=== PATIENT | female | born 1975 | race Caucasian/White ===

== ENCOUNTER → 2016-04-18 | Outpatient (CLI) | payer OTHER ==
[~2016-04-18] MED LIST: ATARAX,VISTARIL10 MG PO; ATARAX25 MG PO; ATIVAN0.5 MG PO; ATIVAN1 MG PO; AUGMENTIN 875 M1 TAB PO; BACTRIM DS 8001 TA1 PO; BUSPAR10 MG PO; CELEXA10 MG PO; CELEXA20 MG PO; CIPRO250 MG PO; CLARITIN10 MG PO; COMBIVENT1 ARO IH; CYCLOBENZAPRINE10 MG PO; DARVOCET N 1001 TAB PO; DAYPRO600 M1 PO; DEXILANT60 M1 PO; FLEXERIL10 MG PO; FLEXERIL5 MG PO; GABAPENTIN TAB600 MG PO; HYDROCODONE BIT1 T11 PO; LORAZEPAM1 MG PO; MEDROL DOSEPAK4 MG PO; MOTRIN800 MG PO; NORCO 5-325 TA1 EACH PO; PEN-VEE K500 MG PO; PERCOCET 325 MG1 TA2 PO; PREDNICOT20 MG PO; PREDNISONE20 MG PO; PRILOSEC40 MG PO; PYRIDIUM200 M1 PO; ROBAXIN750 MG PO; ROBITUSSIN DM120 ML PO; SERTRALINE HYD100 MG PO; SKELAXIN800 MG PO; TESSALON PERLE200 MG PO; TRAMADOL HCL50 MG PO; TRAZODONE50 MG PO; VICODIN 5/500 505 MG PO; VICODIN ES 7501 TAB PO; XANAX0.25 MG PO; ZANTAC150 MG PO; ZITHROMAX Z PA250 MG PO; ZOFRAN ODT8 MG PO
== END | disposition home or self-care (01) ==
LOC: RESCLI 02:58
DX: J40 Bronchitis, not specified as acute or chronic (principal); J06.9 Acute upper respiratory infection, unspecified

== ENCOUNTER 2016-07-27 11:50 | Emergency (ER) | payer OTHER ==
[~2016-07-27] VITALS: Ht 172.7 cm; Wt 113.4 kg
[2016-07-27 12:00] VITALS: BP 152/102
[2016-07-27] MEDS ORDERED: VICODIN 5-3001 EACH PO (12:18)
[2016-07-27 12:20] LABS: BILIRUBIN NEGATIVE (NEGATIVE); BLOOD 1+ (NEGATIVE); CLARITY SL CLOUDY (CLEAR); COLOR YELLOW (YELLOW); GLUCOSE NEGATIVE (NEGATIVE); KETONE NEGATIVE (NEGATIVE); LEUKO ESTERASE TRACE (NEGATIVE); NITRITE NEGATIVE (NEGATIVE); PROTEIN TRACE (NEGATIVE); SPECIFIC GRAVITY >= 1.030 (1.005-1.030); UROBILINOGEN 0.2 E.U./dl (0.2-1.0)
[2016-07-27 12:33] LABS: URINE REFLEX COMMENT YES (NO)
[2016-07-27 12:34] LABS: BACTERIA TRACE; EPITHELIAL CELLS 16-20; HYALINE CAST 0-2
[2016-07-27] MEDS ORDERED: AMOXICILLIN500 M2 PO (12:37)
[2016-07-27] MEDS ORDERED: ZYRTEC10 MG PO (12:37)
== END 2016-07-27 13:01 | disposition home or self-care (01) ==
LOC: ED 11:50
PROVIDERS: Nurse Practitioner Family
DX: N91.2 Amenorrhea, unspecified (principal); J01.90 Acute sinusitis, unspecified; Z90.49 Acquired absence of other specified parts of digestive tract

== ENCOUNTER 2016-09-17 17:19 | Emergency (ER) | payer OTHER ==
[~2016-09-17] VITALS: Ht 170.1 cm; Wt 105.7 kg
[~2016-09-17 17:19] MED LIST changes: +AMOXICILLIN500 M2 PO; +VICODIN 5-3001 EACH PO; +ZYRTEC10 MG PO
[2016-09-17 17:23] VITALS: BP 158/90
[2016-09-17] MEDS ORDERED: HYDROXYZINE PAM50 MG PO (17:27)
[2016-09-17] MEDS ORDERED: DOXEPIN HCL25 MG PO (17:27)
[2016-09-17] MEDS ORDERED: LAMOTRIGINE100 MG PO (17:28)
[2016-09-17] MEDS ORDERED: ZYRTEC10 MG PO (18:53)
[2016-09-17] MEDS ORDERED: DELTASONE20 M1 PO (18:53)
== END 2016-09-17 18:58 | disposition home or self-care (01) ==
LOC: ED 17:19
DX: R06.2 Wheezing (principal); R06.02 Shortness of breath; F17.200 Nicotine dependence, unspecified, uncomplicated; Z79.899 Other long term (current) drug therapy

== ENCOUNTER → 2016-09-20 | Outpatient (CLI) | payer OTHER ==
[~2016-09-20] MED LIST changes: +DELTASONE20 M1 PO; +DOXEPIN HCL25 MG PO; +HYDROXYZINE PAM50 MG PO; +LAMOTRIGINE100 MG PO
== END | disposition home or self-care (01) ==
LOC: MRI 01:44
DX: M51.26 Other intervertebral disc displacement, lumbar region (principal); M47.896 Other spondylosis, lumbar region; M48.54XA Collapsed vertebra, not elsewhere classified, thoracic region, initial encounter for fracture; M40.295 Other kyphosis, thoracolumbar region; Z91.81 History of falling

== ENCOUNTER 2016-10-20 10:42 | Emergency (ER) | payer OTHER ==
[~2016-10-20] VITALS: Ht 170.1 cm; Wt 106.6 kg
[2016-10-20 11:05] VITALS: BP 147/96
== END 2016-10-20 12:17 | disposition left against medical advice (07) ==
LOC: ED 10:42
DX: R07.81 Pleurodynia (principal); F17.200 Nicotine dependence, unspecified, uncomplicated; Z90.49 Acquired absence of other specified parts of digestive tract; Z98.51 Tubal ligation status

== ENCOUNTER → 2016-10-23 | Outpatient (CLI) | payer OTHER | END | disposition home or self-care (01) | LOC: RESCLI 08:56 | DX: M79.2 Neuralgia and neuritis, unspecified (principal); M54.9 Dorsalgia, unspecified; R07.81 Pleurodynia; F17.210 Nicotine dependence, cigarettes, uncomplicated; Z91.09 Other allergy status, other than to drugs and biological substances; Z90.49 Acquired absence of other specified parts of digestive tract ==

== ENCOUNTER → 2016-10-30 | Outpatient (CLI) | payer OTHER | END | disposition home or self-care (01) | LOC: RESCLI 03:31 | DX: R07.81 Pleurodynia (principal); K21.9 Gastro-esophageal reflux disease without esophagitis; E66.09 Other obesity due to excess calories; F41.9 Anxiety disorder, unspecified; M19.90 Unspecified osteoarthritis, unspecified site; Z72.0 Tobacco use; Z68.37 Body mass index [BMI] 37.0-37.9, adult; Z71.6 Tobacco abuse counseling ==

== ENCOUNTER → 2016-12-25 | Outpatient (CLI) | payer OTHER | END | disposition home or self-care (01) | LOC: RESCLI 01:48 | DX: M94.0 Chondrocostal junction syndrome [Tietze] (principal); R07.81 Pleurodynia; M54.9 Dorsalgia, unspecified; E66.09 Other obesity due to excess calories; Z68.37 Body mass index [BMI] 37.0-37.9, adult; Z71.6 Tobacco abuse counseling; Z72.0 Tobacco use; Z90.49 Acquired absence of other specified parts of digestive tract ==

== ENCOUNTER → 2016-12-26 | Outpatient (CLI) | payer OTHER | END | disposition home or self-care (01) | LOC: RAD 14:36 | DX: R07.81 Pleurodynia (principal); F17.200 Nicotine dependence, unspecified, uncomplicated ==

== ENCOUNTER → 2017-08-14 | Outpatient (CLI) | payer OTHER | END | disposition home or self-care (01) | LOC: RESCLI 10:04 | DX: M94.0 Chondrocostal junction syndrome [Tietze] (principal); R07.81 Pleurodynia; M54.9 Dorsalgia, unspecified; E66.09 Other obesity due to excess calories; F41.9 Anxiety disorder, unspecified; Z72.0 Tobacco use; Z71.6 Tobacco abuse counseling; Z68.37 Body mass index [BMI] 37.0-37.9, adult; Z91.09 Other allergy status, other than to drugs and biological substances; Z90.49 Acquired absence of other specified parts of digestive tract ==

== ENCOUNTER → 2018-02-21 | Outpatient (CLI) | payer OTHER | END | disposition home or self-care (01) | LOC: RESCLI 08:49 | DX: E78.2 Mixed hyperlipidemia (principal); J42 Unspecified chronic bronchitis; M79.2 Neuralgia and neuritis, unspecified; M54.9 Dorsalgia, unspecified; R31.29 Other microscopic hematuria; R35.0 Frequency of micturition; K21.9 Gastro-esophageal reflux disease without esophagitis; H65.196 Other acute nonsuppurative otitis media, recurrent, bilateral; F17.200 Nicotine dependence, unspecified, uncomplicated; E66.09 Other obesity due to excess calories; Z71.6 Tobacco abuse counseling; Z91.09 Other allergy status, other than to drugs and biological substances; Z68.37 Body mass index [BMI] 37.0-37.9, adult; Z79.899 Other long term (current) drug therapy ==

== ENCOUNTER → 2018-04-02 | Outpatient (CLI) | payer OTHER ==
[~2018-04-02] MED LIST changes: +AUGMENTIN 875-875 MG PO; +PREDNISONE10 MG PO
== END | disposition home or self-care (01) ==
LOC: RESCLI 04:54
DX: E66.09 Other obesity due to excess calories (principal); J06.9 Acute upper respiratory infection, unspecified; M54.9 Dorsalgia, unspecified; M19.90 Unspecified osteoarthritis, unspecified site; Z88.8 Allergy status to other drugs, medicaments and biological substances; Z90.49 Acquired absence of other specified parts of digestive tract

== ENCOUNTER → 2018-04-12 | Outpatient (CLI) | payer OTHER ==
[~2018-04-12] MED LIST changes: +AVPAK AZITHROM250 MG PO; +CHLORZOXAZONE500 M2 PO; +KETOROLAC10 MG PO; +MUCINEX1200 M1 PO; +NAPROSYN500 MG PO; +PREDNISONE50 MG PO; +PROAIR HFA8.5 GM INH
== END | disposition home or self-care (01) ==
LOC: RESCLI 03:57
DX: M19.90 Unspecified osteoarthritis, unspecified site (principal); E66.09 Other obesity due to excess calories; J06.9 Acute upper respiratory infection, unspecified; M54.9 Dorsalgia, unspecified; F17.210 Nicotine dependence, cigarettes, uncomplicated; K21.9 Gastro-esophageal reflux disease without esophagitis; E78.5 Hyperlipidemia, unspecified; Z90.49 Acquired absence of other specified parts of digestive tract; Z79.899 Other long term (current) drug therapy; Z88.8 Allergy status to other drugs, medicaments and biological substances

== ENCOUNTER 2018-04-14 16:50 | Emergency (ER) | payer OTHER ==
[~2018-04-14] VITALS: Ht 170.1 cm; Wt 106.6 kg
[~2018-04-14 16:50] MED LIST changes: -AVPAK AZITHROM250 MG PO; -CHLORZOXAZONE500 M2 PO; -KETOROLAC10 MG PO; -MUCINEX1200 M1 PO; -NAPROSYN500 MG PO; -PREDNISONE50 MG PO; -PROAIR HFA8.5 GM INH
[2018-04-14 16:52] VITALS: BP 145/71
[2018-04-14 18:08] LABS: HEMATOCRIT 47.5 % (37.0-47.0); HEMOGLOBIN 15.7 g/dl (12.0-16.0); MEAN CELL VOLUME 94.1 fl (81.0-99.0); MEAN CORPUSCULAR HGB 31.1 pg (27.0-31.0); MEAN CORPUSCULAR HGB CONC 33.1 g/dl (33.0-37.0); MEAN PLATELET VOLUME 9.7 fl (9.6-12.3); PLATELET COUNT AUTOMATED 294 10*3/uL (130-400); RED BLOOD COUNT 5.05 10*6/uL (4.10-5.10); RED CELL DISTRI WIDTH 13.2 % (0-14.5)
[2018-04-14 18:27] LABS: BUN 10 mg/dl (7-24); CHLORIDE 107 mmol/L (98-107); CREATININE 0.81 mg/dL (0.55-1.02); POTASSIUM 4.1 mmol/L (3.5-5.1); SODIUM 137 mmol/L (136-145)
[2018-04-14 18:31] LABS: ATYPICAL LYMPHS 1 % (0-0); PLATELET SUFFICIENCY NORMAL (NORMAL); TOTAL CELLS COUNTED 100 #CELLS
[2018-04-14] MEDS ORDERED: PROAIR HFA8.5 GM INH (19:48)
[2018-04-14] MEDS ORDERED: AVPAK AZITHROM250 MG PO (19:48)
[2018-04-14] MEDS ORDERED: PREDNISONE50 MG PO (19:48)
[2018-04-14] MEDS ORDERED: MUCINEX1200 M1 PO (19:48)
[2018-06-03] MEDS ORDERED: PREDNISONE10 MG PO (10:41)
[2018-06-03] MEDS ORDERED: CHLORZOXAZONE500 M2 PO (10:41)
[2018-06-24] MEDS ORDERED: MEDROL DOSEPAK4 MG PO (07:23)
[2018-10-01] MEDS ORDERED: NAPROSYN500 MG PO (11:47)
[2018-10-01] MEDS ORDERED: ROBAXIN500 M1 PO (11:47)
[2018-10-01] MEDS ORDERED: MEDROL DOSEPAK4 MG PO (11:47)
[2018-11-03] MEDS ORDERED: NYST SUSP PO (22:11)
== END 2018-04-14 19:53 | disposition home or self-care (01) ==
LOC: ED 16:50
PROVIDERS: Nurse Practitioner Family
DX: J20.9 Acute bronchitis, unspecified (principal); R09.1 Pleurisy; F17.200 Nicotine dependence, unspecified, uncomplicated; Z79.899 Other long term (current) drug therapy

== ENCOUNTER 2018-04-17 12:40 | Emergency (ER) | payer OTHER ==
[~2018-04-17] VITALS: Ht 170.1 cm; Wt 106.6 kg
[~2018-04-17 12:40] MED LIST changes: +AVPAK AZITHROM250 MG PO; +MUCINEX1200 M1 PO; +PREDNISONE50 MG PO; +PROAIR HFA8.5 GM INH
[2018-04-17 12:42] VITALS: BP 140/82
[2018-04-17] MEDS ORDERED: KETOROLAC10 MG PO (17:48)
[2018-06-03] MEDS ORDERED: PREDNISONE10 MG PO (10:41)
[2018-06-03] MEDS ORDERED: CHLORZOXAZONE500 M2 PO (10:41)
[2018-06-24] MEDS ORDERED: MEDROL DOSEPAK4 MG PO (07:23)
== END 2018-04-17 17:54 | disposition home or self-care (01) ==
LOC: ED 12:40
DX: M54.12 Radiculopathy, cervical region (principal); M25.512 Pain in left shoulder; F17.200 Nicotine dependence, unspecified, uncomplicated; Z79.899 Other long term (current) drug therapy; X58.XXXA Exposure to other specified factors, initial encounter; Y93.89 Activity, other specified; Y92.89 Other specified places as the place of occurrence of the external cause; Y99.8 Other external cause status

== ENCOUNTER 2018-06-12 09:19 | Emergency (ER) | payer MEDICARE ==
[~2018-06-12] VITALS: Wt 106.6 kg
[~2018-06-12 09:19] MED LIST changes: +CHLORZOXAZONE500 M2 PO; +KETOROLAC10 MG PO
[2018-06-12 09:21] VITALS: BP 139/93
[2018-06-12] MEDS ORDERED: NAPROSYN500 MG PO (10:17)
[2018-06-24] MEDS ORDERED: MEDROL DOSEPAK4 MG PO (07:23)
[2018-10-01] MEDS ORDERED: ROBAXIN500 M1 PO (11:47)
[2018-10-01] MEDS ORDERED: MEDROL DOSEPAK4 MG PO (11:47)
[2018-10-01] MEDS ORDERED: NAPROSYN500 MG PO (11:47)
[2018-11-03] MEDS ORDERED: NYST SUSP PO (22:11)
== END 2018-06-12 10:44 | disposition home or self-care (01) ==
LOC: ED 09:19
DX: G89.29 Other chronic pain (principal); M54.5 Low back pain; Z79.899 Other long term (current) drug therapy; Z90.49 Acquired absence of other specified parts of digestive tract

== ENCOUNTER 2018-08-12 07:59 | Emergency (ER) | payer MEDICARE ==
[~2018-08-12] VITALS: Ht 170.1 cm; Wt 106.6 kg
[~2018-08-12 07:59] MED LIST changes: +NAPROSYN500 MG PO
[2018-08-12 08:00] VITALS: BP 117/67
[2018-10-01] MEDS ORDERED: NAPROSYN500 MG PO (11:47)
[2018-10-01] MEDS ORDERED: MEDROL DOSEPAK4 MG PO (11:47)
[2018-10-01] MEDS ORDERED: ROBAXIN500 M1 PO (11:47)
[2018-11-03] MEDS ORDERED: NYST SUSP PO (22:11)
== END 2018-08-12 08:32 | disposition home or self-care (01) ==
LOC: ED 07:59
DX: G89.29 Other chronic pain (principal); M54.5 Low back pain; E66.9 Obesity, unspecified; F17.210 Nicotine dependence, cigarettes, uncomplicated; Z79.899 Other long term (current) drug therapy; Z90.49 Acquired absence of other specified parts of digestive tract

== ENCOUNTER 2018-09-03 08:02 | Emergency (ER) | payer MEDICARE ==
[~2018-09-03] VITALS: Ht 170.1 cm; Wt 111.1 kg
[2018-09-03 08:03] VITALS: BP 135/82
[2018-09-03] MEDS ORDERED: Motrin,Rufen400 MG PO (08:55)
[2018-09-03] MEDS ORDERED: TYLENOL325 M1 PO (08:55)
[2018-10-01] MEDS ORDERED: MEDROL DOSEPAK4 MG PO (11:47)
[2018-10-01] MEDS ORDERED: NAPROSYN500 MG PO (11:47)
[2018-10-01] MEDS ORDERED: ROBAXIN500 M1 PO (11:47)
[2018-11-03] MEDS ORDERED: NYST SUSP PO (22:11)
== END 2018-09-03 09:00 | disposition home or self-care (01) ==
LOC: ED 08:02
DX: G89.29 Other chronic pain (principal); M54.5 Low back pain; R05 Cough; E66.9 Obesity, unspecified; F17.210 Nicotine dependence, cigarettes, uncomplicated; Z79.899 Other long term (current) drug therapy; Z90.49 Acquired absence of other specified parts of digestive tract

== ENCOUNTER 2018-11-16 10:52 | Emergency (ER) | payer MEDICARE ==
[~2018-11-16] VITALS: Ht 167.6 cm; Wt 108.9 kg
[~2018-11-16 10:52] MED LIST changes: +Motrin,Rufen400 MG PO; +NYST SUSP PO; +ROBAXIN500 M1 PO; +TYLENOL325 M1 PO
[2018-11-16 10:55] VITALS: BP 134/99
[2018-11-16] MEDS ORDERED: MEDROL DOSEPAK4 MG PO (12:57)
== END 2018-11-16 13:03 | disposition home or self-care (01) ==
LOC: ED 10:52
DX: S29.011A Strain of muscle and tendon of front wall of thorax, initial encounter (principal); F17.200 Nicotine dependence, unspecified, uncomplicated; Z79.899 Other long term (current) drug therapy; Z90.49 Acquired absence of other specified parts of digestive tract; X58.XXXA Exposure to other specified factors, initial encounter; Y93.89 Activity, other specified; Y92.89 Other specified places as the place of occurrence of the external cause; Y99.8 Other external cause status

== ENCOUNTER 2019-01-18 10:16 | Emergency (ER) | payer MEDICARE ==
[~2019-01-18] VITALS: Ht 170.1 cm; Wt 108.9 kg
[2019-01-18 10:18] VITALS: BP 136/84
[2019-01-18 11:10] LABS: BILIRUBIN NEGATIVE (NEGATIVE); BLOOD NEGATIVE (NEGATIVE); CLARITY CLOUDY (CLEAR); COLOR YELLOW (YELLOW); GLUCOSE NEGATIVE (NEGATIVE); KETONE NEGATIVE (NEGATIVE); LEUKO ESTERASE 1+ (NEGATIVE); NITRITE NEGATIVE (NEGATIVE); SPECIFIC GRAVITY 1.015 (1.005-1.030); UROBILINOGEN 0.2 E.U./dl (0.2-1.0)
[2019-01-18 11:17] LABS: BACTERIA 3+; EPITHELIAL CELLS 15-20; WBC TNTC wbc/hpf (0-5)
[2019-01-18] MEDS ORDERED: MACROBID100 M1 PO ×2 (12:08→12:43)
== END 2019-01-18 13:00 | disposition home or self-care (01) ==
LOC: ED 10:16
PROVIDERS: Nurse Practitioner
DX: S39.012A Strain of muscle, fascia and tendon of lower back, initial encounter (principal); N39.0 Urinary tract infection, site not specified; G89.29 Other chronic pain; F17.210 Nicotine dependence, cigarettes, uncomplicated; Z79.899 Other long term (current) drug therapy; Z71.6 Tobacco abuse counseling; X50.0XXA Overexertion from strenuous movement or load, initial encounter; Y93.89 Activity, other specified; Y92.098 Other place in other non-institutional residence as the place of occurrence of the external cause; Y99.8 Other external cause status

== ENCOUNTER 2019-02-20 14:05 | Emergency (ER) | payer MEDICARE ==
[~2019-02-20] VITALS: Ht 170.1 cm; Wt 111.1 kg
[2019-02-20 14:05] VITALS: BP 151/89
[~2019-02-20 14:05] MED LIST changes: +MACROBID100 M1 PO
[2019-02-20] MEDS ORDERED: PREDNISONE20 M1 PO (16:12)
== END 2019-02-20 16:20 | disposition home or self-care (01) ==
LOC: ED 14:05
DX: G89.29 Other chronic pain (principal); M54.5 Low back pain; M54.6 Pain in thoracic spine; G43.909 Migraine, unspecified, not intractable, without status migrainosus; K21.9 Gastro-esophageal reflux disease without esophagitis; Z79.899 Other long term (current) drug therapy

== ENCOUNTER 2019-06-05 08:36 | Emergency (ER) | payer MEDICARE ==
[~2019-06-05] VITALS: Ht 170.1 cm; Wt 111.1 kg
[~2019-06-05 08:36] MED LIST changes: +PREDNISONE20 M1 PO
== END 2019-06-05 09:45 | disposition home or self-care (01) ==
LOC: ED 08:36
DX: G89.29 Other chronic pain (principal); M54.5 Low back pain; F17.210 Nicotine dependence, cigarettes, uncomplicated; Z90.49 Acquired absence of other specified parts of digestive tract; Z79.899 Other long term (current) drug therapy; Z79.2 Long term (current) use of antibiotics

== ENCOUNTER → 2019-09-17 | Outpatient (CLI) | payer MEDICARE | END | disposition home or self-care (01) | LOC: RAD 09:08 | DX: M53.3 Sacrococcygeal disorders, not elsewhere classified (principal) ==

== ENCOUNTER → 2019-10-22 | Outpatient (CLI) | payer MEDICARE ==
[~2019-10-22] MED LIST changes: +CHANTIX1 M1 PO
== END | disposition home or self-care (01) ==
LOC: MRI 08:56
DX: M51.26 Other intervertebral disc displacement, lumbar region (principal); G95.29 Other cord compression; M47.27 Other spondylosis with radiculopathy, lumbosacral region

== ENCOUNTER 2019-10-24 09:30 | Emergency (ER) | payer MEDICARE ==
[~2019-10-24] VITALS: Ht 170.1 cm; Wt 115.7 kg
[~2019-10-24 09:30] MED LIST changes: -CHANTIX1 M1 PO
[2019-10-24 10:25] LABS: BASO % 0.4 % (0.0-1.0); EOS # 0.2 10*3/uL (0.0-0.4); EOS % 1.8 % (1.0-4.0); HEMATOCRIT 45.7 % (37.0-47.0); LYMPH % 40.7 % (27.0-41.0); MEAN CELL VOLUME 93.3 fl (81.0-99.0); MEAN CORPUSCULAR HGB 30.6 pg (27.0-31.0); MEAN CORPUSCULAR HGB CONC 32.8 g/dl (33.0-37.0); MEAN PLATELET VOLUME 10.2 fl (9.6-12.3); MONO # 0.7 10*3/uL (0.1-1.0); MONO % 6.6 % (3.0-9.0); NEUT % 50.3 % (47.0-73.0); PLATELET COUNT AUTOMATED 278 10*3/uL (130-400); RED CELL DISTRI WIDTH 13.2 % (0-14.5); WHITE BLOOD COUNT 9.9 10*3/uL (4.8-10.8)
[2019-10-24 10:38] LABS: ACT PARTIAL THROMBO TIME 27.6 SECONDS (20.0-32.1)
[2019-10-24 10:43] LABS: ALKALINE PHOSPHATASE 64 U/L (45-117); BUN 6 mg/dl (7-24); CHLORIDE 111 mmol/L (98-107); CREATININE 0.93 mg/dL (0.55-1.02); POTASSIUM 3.2 mmol/L (3.5-5.1); SGOT/AST 11 IU/L (3-35); SGPT/ALT 22 U/L (12-78); SODIUM 141 mmol/L (136-145); TOTAL PROTEIN 6.4 gm/dL (6.4-8.2)
[2019-10-24 10:52] LABS: TROPONIN I < 0.015 ng/ml (<0.045)
[2019-10-24] MEDS ORDERED: CHANTIX1 M1 PO (10:54)
[2019-10-24 12:07] VITALS: BP 130/67
== END 2019-10-24 13:10 | disposition home or self-care (01) ==
LOC: ED 09:30
PROVIDERS: Emergency Medicine
DX: R07.89 Other chest pain (principal); G43.909 Migraine, unspecified, not intractable, without status migrainosus; F32.9 Major depressive disorder, single episode, unspecified; F41.9 Anxiety disorder, unspecified; F17.200 Nicotine dependence, unspecified, uncomplicated; Z79.899 Other long term (current) drug therapy; Z79.2 Long term (current) use of antibiotics

== ENCOUNTER → 2020-05-06 | Outpatient (CLI) | payer MEDICARE ==
[~2020-05-06] MED LIST changes: +CHANTIX1 M1 PO
== END | disposition home or self-care (01) ==
LOC: RAD 10:58
PROVIDERS: ATTEND Nurse Practitioner Primary Care
DX: R07.89 Other chest pain (principal); R06.02 Shortness of breath

== ENCOUNTER 2020-07-20 09:37 | Emergency (ER) | payer MEDICARE ==
[~2020-07-20] VITALS: Ht 170.1 cm; Wt 122.5 kg
[2020-07-20 09:40] VITALS: BP 147/79
== END 2020-07-20 10:52 | disposition home or self-care (01) ==
LOC: ED 09:37
DX: M25.522 Pain in left elbow (principal); G43.909 Migraine, unspecified, not intractable, without status migrainosus; F41.9 Anxiety disorder, unspecified; F32.9 Major depressive disorder, single episode, unspecified; Z79.899 Other long term (current) drug therapy; Z90.49 Acquired absence of other specified parts of digestive tract; Z98.890 Other specified postprocedural states

== ENCOUNTER 2020-11-01 16:52 | Emergency (ER) | payer MEDICARE ==
[~2020-11-01] VITALS: Ht 170.1 cm; Wt 113.4 kg
[2020-11-01 17:36] VITALS: BP 149/103
== END 2020-11-01 19:12 | disposition left against medical advice (07) ==
LOC: ED 16:52
DX: R07.81 Pleurodynia (principal); Z53.21 Procedure and treatment not carried out due to patient leaving prior to being seen by health care provider

== ENCOUNTER 2020-11-05 08:06 | Emergency (ER) | payer MEDICARE ==
[~2020-11-05] VITALS: Ht 170.1 cm; Wt 113.4 kg
[2020-11-05 08:20] VITALS: BP 152/96
[2020-11-05 08:56] LABS: MEAN CELL VOLUME 93.8 fl (81.0-99.0); MEAN CORPUSCULAR HGB 31.3 pg (27.0-31.0); MEAN CORPUSCULAR HGB CONC 33.3 g/dl (33.0-37.0); MEAN PLATELET VOLUME 9.6 fl (9.6-12.3); PLATELET COUNT AUTOMATED 301 10*3/uL (130-400); RED CELL DISTRI WIDTH 13.2 % (0-14.5); WHITE BLOOD COUNT 17.6 10*3/uL (4.8-10.8)
[2020-11-05 09:13] LABS: BUN 8 mg/dl (7-24); CHLORIDE 107 mmol/L (98-107); CREATININE 0.81 mg/dL (0.55-1.02); POTASSIUM 3.4 mmol/L (3.5-5.1); SODIUM 136 mmol/L (136-145)
[2020-11-05 09:14] LABS: TROPONIN I < 0.015 ng/ml (<0.045)
[2020-11-05 09:19] LABS: BASOPHILS 1 % (0-1); PLATELET SUFFICIENCY NORMAL (NORMAL); TOTAL CELLS COUNTED 100 #CELLS
== END 2020-11-05 12:03 | disposition home or self-care (01) ==
LOC: ED 08:06
PROVIDERS: Emergency Medicine
DX: R07.89 Other chest pain (principal); R07.81 Pleurodynia; E66.9 Obesity, unspecified; F17.210 Nicotine dependence, cigarettes, uncomplicated; Z79.899 Other long term (current) drug therapy; Z79.2 Long term (current) use of antibiotics; Z87.442 Personal history of urinary calculi; Z90.49 Acquired absence of other specified parts of digestive tract; Z98.51 Tubal ligation status

== ENCOUNTER 2020-12-20 13:03 | Emergency (ER) | payer MEDICARE ==
[2020-12-20 13:11] VITALS: BP 125/89
== END 2020-12-20 16:22 | disposition home or self-care (01) ==
LOC: ED 13:03
DX: B34.9 Viral infection, unspecified (principal); Z20.822 Contact with and (suspected) exposure to COVID-19; Z79.899 Other long term (current) drug therapy

== ENCOUNTER → 2021-01-18 | Outpatient (CLI) | payer MEDICARE | END | disposition home or self-care (01) | LOC: RAD 15:46 | PROVIDERS: ATTEND Nurse Practitioner Primary Care | DX: R09.89 Other specified symptoms and signs involving the circulatory and respiratory systems (principal) ==

== ENCOUNTER → 2021-11-09 | Outpatient (CLI) | payer OTHER | END | disposition home or self-care (01) | LOC: RAD 10:43 | PROVIDERS: ATTEND Internal Medicine | DX: M25.511 Pain in right shoulder (principal); M79.641 Pain in right hand ==

== ENCOUNTER → 2021-11-29 | Outpatient (CLI) | payer OTHER | END | disposition home or self-care (01) | LOC: RAD 15:08 | PROVIDERS: ATTEND Family Medicine | DX: M47.816 Spondylosis without myelopathy or radiculopathy, lumbar region (principal); I70.0 Atherosclerosis of aorta ==

== ENCOUNTER → 2021-12-21 | Outpatient (CLI) | payer OTHER | END | disposition home or self-care (01) | LOC: MRI 08:33 | PROVIDERS: ATTEND Family Medicine | DX: S43.021A Posterior subluxation of right humerus, initial encounter (principal); M67.911 Unspecified disorder of synovium and tendon, right shoulder; M19.011 Primary osteoarthritis, right shoulder; M77.8 Other enthesopathies, not elsewhere classified; M25.411 Effusion, right shoulder; X58.XXXA Exposure to other specified factors, initial encounter; Y93.89 Activity, other specified; Y92.89 Other specified places as the place of occurrence of the external cause; Y99.8 Other external cause status ==

== ENCOUNTER → 2022-01-02 | Outpatient (CLI) | payer OTHER | END | disposition home or self-care (01) | LOC: MRI 02:46 | PROVIDERS: ATTEND Family Medicine | DX: M47.817 Spondylosis without myelopathy or radiculopathy, lumbosacral region (principal); M48.061 Spinal stenosis, lumbar region without neurogenic claudication; M51.26 Other intervertebral disc displacement, lumbar region ==

== ENCOUNTER → 2022-07-19 | Outpatient (CLI) | payer OTHER ==
[2022-07-19 09:57] LABS: BASO # 0.1 10*3/uL (0.0-0.1); BASO % 0.5 % (0.0-1.0); EOS # 0.2 10*3/uL (0.0-0.4); EOS % 1.9 % (1.0-4.0); HEMATOCRIT 44.9 % (37.0-47.0); LYMPH # 4.1 10*3/uL (1.3-4.4); LYMPH % 38.2 % (27.0-41.0); MEAN CELL VOLUME 92.8 fl (81.0-99.0); MEAN CORPUSCULAR HGB CONC 32.3 g/dl (33.0-37.0); MEAN PLATELET VOLUME 9.4 fl (9.6-12.3); MONO # 0.8 10*3/uL (0.1-1.0); MONO % 7.3 % (3.0-9.0); NEUT # 5.6 10*3/uL (2.3-7.9); NEUT % 51.6 % (47.0-73.0); PLATELET COUNT AUTOMATED 325 10*3/uL (130-400); RED BLOOD COUNT 4.84 10*6/uL (4.10-5.10); WHITE BLOOD COUNT 10.8 10*3/uL (4.8-10.8)
[2022-07-19 09:59] LABS: BILIRUBIN Negative (Negative); BLOOD Negative (Negative); CLARITY Clear (Clear); COLOR Yellow (Yellow); GLUCOSE Negative (Negative); KETONE Negative (Negative); LEUKO ESTERASE 1+ (Negative); NITRITE Negative (Negative); PH 5.5 (4.5-8.0); UROBILINOGEN 0.2 E.U./dl (0.0-1.0)
[2022-07-19 10:39] LABS: ALKALINE PHOSPHATASE 61 U/L (46-116); BUN 9 mg/dl (9-23); CHLORIDE 103 mmol/L (98-107); CHOLESTEROL 166 mg/dL (<200); GAMMA GLUTAMYL TRANSPEPTIDASE 36 U/L (0-73); LDL CHOLESTEROL 89 mg/dL (9-159); POTASSIUM 3.5 mmol/L (3.4-5.1); SGPT/ALT 31 U/L (10-49); T3 UPTAKE 22.3 % (22.4-36.7); THYROID STIM HORMONE (HS) 0.893 uIU/ml (0.550-4.780); THYROXINE (T4) TOTAL 9.1 ug/dl (4.5-10.9); TOTAL PROTEIN 6.4 gm/dL (6.0-8.0); TRIGLYCERIDES 116 mg/dl (<150)
[2022-07-19 11:01] LABS: VITAMIN D, 25-HYDROXY 24.9 ng/mL (30-100)
[2022-07-19 11:08] LABS: BACTERIA 1+; MUCOUS 1+
== END | disposition home or self-care (01) ==
LOC: LAB 08:57
PROVIDERS: ATTEND Family Medicine
DX: E78.5 Hyperlipidemia, unspecified (principal); E55.9 Vitamin D deficiency, unspecified; R79.89 Other specified abnormal findings of blood chemistry; R53.83 Other fatigue; R74.8 Abnormal levels of other serum enzymes

== ENCOUNTER → 2022-08-09 | Outpatient (CLI) | payer OTHER | END | disposition home or self-care (01) | LOC: RAD 10:24 | PROVIDERS: ATTEND Family Medicine | DX: M17.11 Unilateral primary osteoarthritis, right knee (principal) ==

== ENCOUNTER → 2022-08-25 | Outpatient (CLI) | payer OTHER ==
[2022-08-25 09:25] LABS: BASO % 0.5 % (0.0-1.0); EOS # 0.1 10*3/uL (0.0-0.4); EOS % 1.4 % (1.0-4.0); LYMPH # 2.6 10*3/uL (1.3-4.4); LYMPH % 30.1 % (27.0-41.0); MEAN CELL VOLUME 91.7 fl (81.0-99.0); MEAN CORPUSCULAR HGB CONC 32.7 g/dl (33.0-37.0); MEAN PLATELET VOLUME 9.7 fl (9.6-12.3); MONO # 0.7 10*3/uL (0.1-1.0); MONO % 7.6 % (3.0-9.0); NEUT # 5.3 10*3/uL (2.3-7.9); NEUT % 60.1 % (47.0-73.0); PLATELET COUNT AUTOMATED 303 10*3/uL (130-400); WHITE BLOOD COUNT 8.7 10*3/uL (4.8-10.8)
== END | disposition home or self-care (01) ==
LOC: LAB 08:44
PROVIDERS: ATTEND Orthopaedic Surgery
DX: M25.461 Effusion, right knee (principal)

== ENCOUNTER → 2022-10-23 | Outpatient (CLI) | payer OTHER | END | disposition home or self-care (01) | LOC: RAD 15:03 | PROVIDERS: ATTEND Family Medicine | DX: M19.071 Primary osteoarthritis, right ankle and foot (principal); M77.31 Calcaneal spur, right foot ==

== ENCOUNTER → 2022-11-23 | Outpatient (CLI) | payer OTHER ==
[2022-11-23 13:28] LABS: BASO % 0.4 % (0.0-1.0); EOS # 0.1 10*3/uL (0.0-0.4); EOS % 1.2 % (1.0-4.0); HEMATOCRIT 44.4 % (37.0-47.0); LYMPH # 3.6 10*3/uL (1.3-4.4); LYMPH % 32.6 % (27.0-41.0); MEAN CELL VOLUME 89.3 fl (81.0-99.0); MEAN CORPUSCULAR HGB CONC 33.6 g/dl (33.0-37.0); MEAN PLATELET VOLUME 9.3 fl (9.6-12.3); MONO # 0.7 10*3/uL (0.1-1.0); MONO % 6.4 % (3.0-9.0); NEUT # 6.5 10*3/uL (2.3-7.9); PLATELET COUNT AUTOMATED 332 10*3/uL (130-400); RED BLOOD COUNT 4.97 10*6/uL (4.10-5.10); RED CELL DISTRI WIDTH 13.3 % (0-14.5)
[2022-11-23 14:05] LABS: TOTAL PROTEIN 6.7 gm/dL (6.0-8.0)
[2022-11-24 11:07] LABS: ANTI-RNP ANTIBODIES <0.2 AI (0.0-0.9)
[2022-11-24 13:07] LABS: CCP ANTIBODIES IGG/IGA 3 units (0-19)
[2022-11-25 06:08] LABS: DILUTE PROTHROMBIN TIME 40.2 sec (0.0-47.6); DPT CONFIRM RATIO 1.24 Ratio (0.00-1.34); LUPUS DRVVT 37.6 sec (0.0-47.0); LUPUS REFLEX INTERPRETATION Comment: (.); PTT-LA 36.8 sec (0.0-43.5); THROMBIN TIME 16.2 sec (0.0-23.0)
== END | disposition home or self-care (01) ==
LOC: LAB 12:58
PROVIDERS: ATTEND Orthopaedic Surgery
DX: M25.461 Effusion, right knee (principal); M25.561 Pain in right knee; R10.9 Unspecified abdominal pain; R11.2 Nausea with vomiting, unspecified

== ENCOUNTER → 2023-01-25 | Outpatient (CLI) | payer OTHER | END | disposition home or self-care (01) | LOC: RAD 12:09 | PROVIDERS: ATTEND Family Medicine | DX: M47.812 Spondylosis without myelopathy or radiculopathy, cervical region (principal); M47.816 Spondylosis without myelopathy or radiculopathy, lumbar region; M47.814 Spondylosis without myelopathy or radiculopathy, thoracic region; M43.8X4 Other specified deforming dorsopathies, thoracic region; M48.061 Spinal stenosis, lumbar region without neurogenic claudication; M48.04 Spinal stenosis, thoracic region; M48.02 Spinal stenosis, cervical region ==

== ENCOUNTER 2023-05-22 10:02 | Emergency (ER) | payer OTHER ==
[~2023-05-22] VITALS: Ht 170.1 cm; Wt 112.0 kg
[2023-05-22 10:18] VITALS: BP 134/97
[2023-05-22] MEDS ORDERED: PREDNISONE50 MG PO (12:14)
[2023-05-22] MEDS ORDERED: methylPREDNISolone sod succ 125 MG VIAL IM ONE (12:15)
== END 2023-05-22 12:25 | disposition home or self-care (01) ==
LOC: ED 10:02
DX: M77.8 Other enthesopathies, not elsewhere classified (principal); G43.909 Migraine, unspecified, not intractable, without status migrainosus; F32.A Depression, unspecified; F41.9 Anxiety disorder, unspecified; K21.9 Gastro-esophageal reflux disease without esophagitis; Z90.49 Acquired absence of other specified parts of digestive tract; Z98.890 Other specified postprocedural states

== ENCOUNTER → 2023-11-01 | Outpatient (CLI) | payer OTHER | END | disposition home or self-care (01) | LOC: RAD 13:55 | PROVIDERS: ATTEND Family Medicine | DX: M47.815 Spondylosis without myelopathy or radiculopathy, thoracolumbar region (principal); M43.8X6 Other specified deforming dorsopathies, lumbar region; M25.521 Pain in right elbow ==

== ENCOUNTER → 2024-01-23 | Outpatient (CLI) | payer OTHER ==
[2024-01-23 15:39] LABS: BILIRUBIN Negative (Negative); BLOOD Negative (Negative); CLARITY Clear (Clear); COLOR Yellow (Yellow); GLUCOSE Negative (Negative); KETONE Trace (Negative); LEUKO ESTERASE Negative (Negative); NITRITE Negative (Negative); PH 5.5 (4.5-8.0); SPECIFIC GRAVITY 1.025 (1.001-1.030); UROBILINOGEN 0.2 E.U./dl (0.0-1.0)
[2024-01-23 15:41] LABS: MEAN CELL VOLUME 91.1 fl (81.0-99.0); MEAN PLATELET VOLUME 9.4 fl (9.6-12.3); PLATELET COUNT AUTOMATED 307 10*3/uL (130-400); RED BLOOD COUNT 4.83 10*6/uL (4.10-5.10); RED CELL DISTRI WIDTH 12.4 % (0-14.5); RETICULOCYTE % 1.07 % (0.50-2.50); WHITE BLOOD COUNT 11.7 10*3/uL (4.8-10.8)
[2024-01-23 15:50] LABS: BACTERIA TRACE; CALCIUM OXALATE CRYSTALS 2+; RBC 0-2 rbc/hpf (0-2)
[2024-01-23 16:05] LABS: ALKALINE PHOSPHATASE 72 U/L (46-116); BUN 7 mg/dl (9-23); CHLORIDE 106 mmol/L (98-107); CHOLESTEROL 206 mg/dL (<200); GAMMA GLUTAMYL TRANSPEPTIDASE 43 U/L (0-73); LDL CHOLESTEROL 115 mg/dL (9-159); POTASSIUM 3.4 mmol/L (3.4-5.1); SGPT/ALT 20 U/L (5-49); THYROXINE (T4) TOTAL 8.4 ug/dl (4.5-10.9); TOTAL PROTEIN 6.8 gm/dL (6.0-8.0); TRIGLYCERIDES 208 mg/dl (<150); URIC ACID 4.2 mg/dL (3.1-7.8); VITAMIN D, 25-HYDROXY 33.7 ng/mL (30-100)
[2024-01-23 16:29] LABS: ATYPICAL LYMPHS 3 % (0-0); BASOPHILS 2 % (0-1); PLATELET SUFFICIENCY NORMAL (NORMAL); TOTAL CELLS COUNTED 100 #CELLS
[2024-01-24 10:08] LABS: TOTAL PROTEIN, SERUM 6.4 g/dL (6.0-8.5)
[2024-01-24 13:07] LABS: ANTI-DSDNA ANTIBODIES <1 IU/mL (0-9)
[2024-01-24 14:09] LABS: A/G RATIO 1.1 (0.7-1.7); ALBUMIN 3.4 g/dL (2.9-4.4); ALPHA-1-GLOBULIN 0.3 g/dL (0.0-0.4); ALPHA-2-GLOBULIN 0.9 g/dL (0.4-1.0); BETA GLOBULIN 1.1 g/dL (0.7-1.3); GAMMA GLOBULIN 0.8 g/dL (0.4-1.8)
== END | disposition home or self-care (01) ==
LOC: LAB 15:03
PROVIDERS: ATTEND Family Medicine
DX: R06.02 Shortness of breath (principal); R79.89 Other specified abnormal findings of blood chemistry; R53.83 Other fatigue; E78.5 Hyperlipidemia, unspecified; E55.9 Vitamin D deficiency, unspecified

== ENCOUNTER → 2024-06-13 | Outpatient (CLI) | payer OTHER ==
[2024-06-13 12:35] LABS: BILIRUBIN Negative (Negative); BLOOD Negative (Negative); CLARITY Clear (Clear); COLOR Yellow (Yellow); GLUCOSE Negative (Negative); KETONE Negative (Negative); LEUKO ESTERASE 2+ (Negative); NITRITE Negative (Negative); UROBILINOGEN 0.2 E.U./dl (0.0-1.0)
[2024-06-13 12:36] LABS: BASO % 0.3 % (0.0-1.0); EOS # 0.2 10*3/uL (0.0-0.4); HEMATOCRIT 44.4 % (37.0-47.0); MEAN CELL VOLUME 88.4 fl (81.0-99.0); MEAN CORPUSCULAR HGB 28.7 pg (27.0-31.0); MEAN CORPUSCULAR HGB CONC 32.4 g/dl (33.0-37.0); MEAN PLATELET VOLUME 9.4 fl (9.6-12.3); MONO # 0.6 10*3/uL (0.1-1.0); MONO % 6.7 % (3.0-9.0); NEUT # 4.3 10*3/uL (2.3-7.9); PLATELET COUNT AUTOMATED 340 10*3/uL (130-400); RED BLOOD COUNT 5.02 10*6/uL (4.10-5.10); RED CELL DISTRI WIDTH 13.9 % (0-14.5); RETICULOCYTE % 1.26 % (0.50-2.50); WHITE BLOOD COUNT 8.8 10*3/uL (4.8-10.8)
[2024-06-13 12:46] LABS: BACTERIA 1+; WBC 16-20 wbc/hpf (0-5)
[2024-06-13 13:28] LABS: ALKALINE PHOSPHATASE 74 U/L (46-116); BUN 11 mg/dl (9-23); CHLORIDE 105 mmol/L (98-107); CHOLESTEROL 194 mg/dL (<200); GAMMA GLUTAMYL TRANSPEPTIDASE 34 U/L (0-73); LDL CHOLESTEROL 111 mg/dL (9-159); POTASSIUM 4.2 mmol/L (3.4-5.1); SGPT/ALT 22 U/L (5-49); T3 UPTAKE 27.3 % (22.4-36.7); THYROXINE (T4) TOTAL 7.1 ug/dl (4.5-10.9); TOTAL PROTEIN 6.7 gm/dL (6.0-8.0); TRIGLYCERIDES 166 mg/dl (<150); URIC ACID 4.1 mg/dL (3.1-7.8)
[2024-06-13 13:30] LABS: VITAMIN D, 25-HYDROXY 35.7 ng/mL (30-100)
[2024-06-16 12:07] LABS: ANTI-DSDNA ANTIBODIES <1 IU/mL (0-9)
== END | disposition home or self-care (01) ==
LOC: LAB 12:09
PROVIDERS: ATTEND Family Medicine
DX: E55.9 Vitamin D deficiency, unspecified (principal); E78.5 Hyperlipidemia, unspecified; R53.83 Other fatigue; R79.89 Other specified abnormal findings of blood chemistry

== ENCOUNTER → 2024-06-24 | Outpatient (CLI) | payer OTHER | END | disposition home or self-care (01) | LOC: RAD 10:17 | PROVIDERS: ATTEND Family Medicine | DX: M47.817 Spondylosis without myelopathy or radiculopathy, lumbosacral region (principal); M17.11 Unilateral primary osteoarthritis, right knee; M25.761 Osteophyte, right knee; M16.11 Unilateral primary osteoarthritis, right hip; G89.29 Other chronic pain; M54.50 Low back pain, unspecified; M25.751 Osteophyte, right hip; Z87.81 Personal history of (healed) traumatic fracture ==

== ENCOUNTER → 2024-06-30 | Outpatient (CLI) | payer OTHER | END | disposition home or self-care (01) | LOC: RAD 10:59 | PROVIDERS: ATTEND Family Medicine | DX: M47.812 Spondylosis without myelopathy or radiculopathy, cervical region (principal); M54.50 Low back pain, unspecified; M54.2 Cervicalgia; Z87.81 Personal history of (healed) traumatic fracture ==

== ENCOUNTER → 2024-07-07 | Outpatient (CLI) | payer OTHER | END | disposition home or self-care (01) | LOC: RAD 09:00 | PROVIDERS: ATTEND Family Medicine | DX: Z13.820 Encounter for screening for osteoporosis (principal); M81.0 Age-related osteoporosis without current pathological fracture; J98.4 Other disorders of lung; Z78.0 Asymptomatic menopausal state ==

== ENCOUNTER 2024-12-21 16:15 | Emergency (ER) | payer OTHER ==
[~2024-12-21] VITALS: Ht 172.7 cm; Wt 127.0 kg
[2024-12-21 16:24] VITALS: BP 146/92
[2024-12-21] MEDS ORDERED: HYDROCODONE-AC1 EACH PO (16:25)
[2024-12-21] MEDS ORDERED: CYCLOBENZAPRINE10 MG PO (16:26)
[2024-12-21] MEDS ORDERED: LORazepam 1 MG TAB PO ONE (16:30)
[2024-12-21 16:44] LABS: BASO # 0.0 10*3/uL (0.0-0.1); BASO % 0.3 % (0.0-1.0); EOS # 0.1 10*3/uL (0.0-0.4); EOS % 0.7 % (1.0-4.0); MEAN CELL VOLUME 89.7 fl (81.0-99.0); MEAN CORPUSCULAR HGB 29.7 pg (27.0-31.0); MEAN PLATELET VOLUME 9.7 fl (9.6-12.3); MONO # 1.0 10*3/uL (0.1-1.0); MONO % 7.3 % (3.0-9.0); NEUT # 9.1 10*3/uL (2.3-7.9); NEUT % 67.9 % (47.0-73.0); NUCLEATED RED BLOOD CELL 0.0 % (0.0-0.0); NUCLEATED RED BLOOD CELL 0.0 10*3/uL (0.0-0.0); PLATELET COUNT AUTOMATED 299 10*3/uL (130-400); RED CELL DISTRI WIDTH 13.2 % (0-14.5)
[2024-12-21 17:05] LABS: BUN 7 mg/dl (9-23)
[2024-12-21] MEDS ORDERED: POTASSIUM CHLORIDE 20 MEQ TAB PO ONE (17:15)
== END 2024-12-21 17:20 | disposition home or self-care (01) ==
LOC: ED 16:15
PROVIDERS: Emergency Medicine
DX: R07.2 Precordial pain (principal); F41.9 Anxiety disorder, unspecified; R06.02 Shortness of breath; Z79.899 Other long term (current) drug therapy; Z90.49 Acquired absence of other specified parts of digestive tract

== ENCOUNTER → 2025-01-23 | Outpatient (CLI) | payer OTHER ==
[~2025-01-23] MED LIST changes: +HYDROCODONE-AC1 EACH PO
[2025-01-23 11:12] LABS: BASO # 0.1 10*3/uL (0.0-0.1); BASO % 0.5 % (0.0-1.0); EOS # 0.2 10*3/uL (0.0-0.4); EOS % 1.5 % (1.0-4.0); MEAN CELL VOLUME 91.3 fl (81.0-99.0); MEAN CORPUSCULAR HGB 29.2 pg (27.0-31.0); MEAN PLATELET VOLUME 9.8 fl (9.6-12.3); MONO # 0.7 10*3/uL (0.1-1.0); MONO % 6.6 % (3.0-9.0); NEUT # 6.0 10*3/uL (2.3-7.9); NEUT % 55.6 % (47.0-73.0); NUCLEATED RED BLOOD CELL 0.0 % (0.0-0.0); NUCLEATED RED BLOOD CELL 0.0 10*3/uL (0.0-0.0); PLATELET COUNT AUTOMATED 322 10*3/uL (130-400); RED CELL DISTRI WIDTH 13.9 % (0-14.5); RETICULOCYTE % 1.50 % (0.50-2.50)
[2025-01-23 11:15] LABS: BILIRUBIN Negative (Negative); BLOOD Negative (Negative); CLARITY Clear (Clear); COLOR Yellow (Yellow); KETONE Negative (Negative); LEUKO ESTERASE Negative (Negative); NITRITE Negative (Negative); PH 5.0 (4.5-8.0); SPECIFIC GRAVITY 1.020 (1.001-1.030); UROBILINOGEN 1.0 E.U./dl (0.0-1.0)
[2025-01-23 11:22] LABS: BACTERIA 1+; RBC 0-2 rbc/hpf (0-2)
[2025-01-23 12:04] LABS: BUN 7 mg/dl (9-23); GAMMA GLUTAMYL TRANSFERASE 38 U/L (0-38); LDL CHOLESTEROL 162 mg/dL (9-159); SGPT/ALT 22 U/L (5-49)
[2025-01-23 12:05] LABS: VITAMIN D, 25-HYDROXY 33.8 ng/mL (30-100)
== END | disposition home or self-care (01) ==
LOC: LAB 10:21
PROVIDERS: ATTEND Family Medicine
DX: R79.89 Other specified abnormal findings of blood chemistry (principal); R53.83 Other fatigue; E78.5 Hyperlipidemia, unspecified; E55.9 Vitamin D deficiency, unspecified